=== PATIENT | male | born 1965 | race Two or more races ===

== ENCOUNTER 2017-05-12 02:36 | Emergency (ER) | payer SELFPAY ==
[~2017-05-12] VITALS: Ht 177.8 cm; Wt 91.0 kg
[2017-05-12] MEDS ORDERED: IBUPROFEN 600MG TABLET PO ONE (10:15)
[2017-05-12 10:34] VITALS: BP 126/69
== END 2017-05-12 10:49 | disposition home or self-care (01) ==
LOC: ER 02:36
DX: R05 Cough (principal); F17.200 Nicotine dependence, unspecified, uncomplicated; M79.1 Myalgia; R09.81 Nasal congestion; R50.9 Fever, unspecified
CPT/HCPCS: 71045; 87804; 99285